=== PATIENT | female | born 1945 | race Caucasian/White ===

== ENCOUNTER 2017-07-06 11:51 | Emergency (ER) | payer OTHER, BC ==
[~2017-07-06] VITALS: Ht 170.2 cm; Wt 77.3 kg
[~2017-07-06 11:51] MED LIST: 5-HTP100 MG; ACETYL; ATIVAN2 MG PO; CEFDINIR300 MG PO; CELEXA10 MG; CELEXA20 MG PO; CIPRO500 MG PO; COLACE100 MG PO; CONCERTA36 MG PO; DEPLIN15 MG; DILAUDID2 MG PO; FLAGYL500 MG PO; FLORINEF ACETA0.1 MG PO; HYDROCODON-ACE1 EAC7 PO; LAMICTAL25 MG PO; MALARONE 250-11 EACH PO; MYCELEX10 MG MM; NEURONTIN100 MG PO; NEXIUM40 MG PO; NORPRAMIN PO; OMEGA 3 1,0001 EACH; OMEGA 3-6-9 CO1 EACH PO; PERCOCET 5/31 TABLET PO; PROBIOTIC1 EAC1 PO; STRATTERA40 MG PO; ZOFRAN4 MG PO; [UNRECOGNIZED DRUG - OTHER]
[2017-07-06] MEDS ORDERED: SKELAXIN800 MG PO (15:14)
[2017-07-06] MEDS ORDERED: LIDODERM 5% P1 PATCH TD (15:14)
[2017-07-06 15:49] VITALS: BP 137/69
== END 2017-07-06 15:53 | disposition home or self-care (01) ==
LOC: EME 11:51
DX: M25.551 Pain in right hip (principal); M54.5 Low back pain; M79.604 Pain in right leg; M79.605 Pain in left leg; W18.31XA Fall on same level due to stepping on an object, initial encounter; R11.0 Nausea; I10 Essential (primary) hypertension
CPT/HCPCS: 73502; 99281; 99284; G8978 GP CH; G8979 GP CH; G8980 GP CH; G8987 GO CJ; G8988 GO CJ; G8989 CJ; J3010